=== PATIENT | female | born 1955 | race African-American/Black ===

== ENCOUNTER 2017-04-26 15:12 | Inpatient (IN) | payer OTHER ==
[~2017-04-26] VITALS: Ht 160 cm; Wt 73.1 kg
--- NOTE | ~2017-04-26 | HC ---
[facility] [place] [address] CONSULTATION Name: EDWIN WHITLEY Room #: 509-P ADM IN M.R.#: [id number] Admission: 04/26/17 Attend Phys: Mat Richardson MD Discharge: Date of : 59 Report #: [id number] THIS REPORT FOR: //name// CC: Mat Richardson FAM physician/PCP DATE OF SERVICE: 04/28/2017 This is a neurobehavioral status exam. ATTENDING PHYSICIAN: Mat Richardson MD SUPERVISOR COLOR PASTE MIXING: Austin Collins, PhD CLINICAL PRESENTATION: The patient is a 61-year-old female admitted to the [facility] rehabilitation unit for a comprehensive inpatient rehabilitation program to improve functional mobility, activities of daily living and self-care and mental status secondary to a cerebrovascular accident. She was initially brought to the hospital for a questionable treatment of a vasovagal response. Neurology workup revealed a right cerebral deep white matter infarction. She was noted to have a left-sided weakness in her face and arms. PAST MEDICAL HISTORY: Includes hypertension, rectal bleeding 2016 secondary to diverticulitis, and a head injury in June 2015. She is reported to have had a good recovery from previous conditions and was driving preceding this most recent hospitalization. A complete description of her medical condition and history can be found in her medical record. Neuropsychological consultation was requested to provide assistance in the assessment of cognitive and emotional status and to provide recommendations and services. Prior to this most recent medical event, she was living independently. Her son lives with her. 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 She has 4 children, 4 brothers and 1 sister. There is no reported history of treatment for mental disorder, dementia, alcohol, or other substance use. TECHNIQUES UTILIZED: Clinical interview, review of medical records, staff consultation and behavioral observation, mini mental status exam 2 standard version. EXAMINATION FINDINGS: The patient was alert and cooperative with the assessment. She accurately described the reason for her hospitalization. There is no evidence of aphasia. Her thoughts are logical and goal oriented. There is no report of auditory or visual hallucinations. She does not report suicidal or homicidal thinking. [facility] [address] [place] [address] CONSULTATION Name: EDWIN WHITLEY Room #: 509-P [facility] IN M.R.#: [id number] Admission: 04/26/17 Attend Phys: Mat Richardson MD Discharge: Date of : 59 Report #: [id number] She does not report difficulty with sleep, appetite or memory. She also indicates that attention/concentration, anxiety and depression are all within normal limits. Her performance on the MMSE 2 brief version is within normal limits with a raw score of 14-16 that is a T score of 41. She was 3/3 for initial registration, 5/5 for orientation to time and 5/[address]. Performance decreased to have mild range of impairment on the MMSE 2 standard version with a raw score 23-30. She was 1/5 for serial sevens, 2/2 for naming, 1/1 for repetition. She could read and follow a single command. The patient had difficulty with copying. Difficulty withdrawing secondary to the left hemiparesis and that the patient is left handed. Letter fluency is within normal limits with a raw score of 34 and a T score of 58. Category fluency is a raw score of 35 and a T score of 37 suggesting mild deficits. Overall, total fluency was in the average range with a T score of 50. 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 RECOMMENDATIONS: Continued cognitive rehabilitation with assistance and development of compensatory strategies for areas of decreased cognition. Outpatient neuropsychological testing is indicated to assist in the clarification of cognitive deficits. Educational information for her son to assist in providing environemtal support as needed. Thank you very much for allowing me to provide the consultation on this patient. <ELECTRONICALLY SIGNED> By: Austin Collins, PhD 05/04/17 1349 1416 2250 Austin Collins, PhD /nt
--- NOTE | ~2017-04-26 | P ---
[facility] [place] [address] PROCEDURE REPORT Name: GUTIERREZEDWIN ANN Room #: 509-P ADM IN M.R.#: [id number] Admission: 04/26/17 Attend Phys: Charity Richardson MD Discharge: Date of : 59 Report #: [id number] THIS REPORT FOR: //name// CC: CHARITY Richardson [facility] physician/PCP Inpatient Chart DATE OF SERVICE: 05/02/2017 PROCEDURE: Diagnostic EGD. The patient of Dr. Charity Richardson. CHIEF COMPLAINT: This is a very pleasant 61-year-old white female with a chief complaint of dark stools, heme-positive stools and anemia, etiology uncertain. She has had a colonoscopy that did not explain the source of her anemia. So EGD is performed today to evaluate for possible proximal source of blood loss. Informed consent for this procedure was obtained prior to the administration of any medication. The risks of the procedure which include bleeding, perforation, infection, complications of sedation and the possibility I could miss something have been explained to the patient and she is indicated her consent by signing. Propofol was slowly titrated before and during this procedure for patient comfort by the anesthesia service. The Pedius upper videoscope was introduced through the upper esophageal sphincter and advanced under direct visualization to the descending duodenum. Findings are noted on withdrawal of the scope. The duodenal mucosa appears normal throughout its entirety. Pylorus, normal mucosa. Antrum, normal mucosa. Body, normal mucosa. Cardia and fundus, normal mucosa. Retroflex view did not reveal any abnormalities. The scope was withdrawn to the esophagus. The Z-line is appropriately located at the top of the gastric folds and appears normal. The esophageal mucosa appears normal throughout its entirety. The scope was withdrawn. The patient went to the recovery area in stable condition. She tolerated the procedure well. IMPRESSION: Normal EGD to descending duodenum. No source of melena was seen. My recommendations are for her to have an M2 video capsule done as the next test. This may need to be done as an outpatient. [address] [address] PROCEDURE REPORT Name: EDWIN WHITLEY Room #: 509-P [facility] IN .R.#: [id number] Admission: 04/26/17 Attend Phys: Charity Richardson MD Discharge: Date of : 59 Report #: [id number] Thank you very much once again for allowing me to participate in her care, Dr. Richardson. <ELECTRONICALLY SIGNED> By: Rola Ventura DO 05/03/17 0701 1635 0248 Rola Ventura DO /nt
--- NOTE | ~2017-04-26 | H ---
[facility] [place] [address] HISTORY AND PHYSICAL Name: EDWIN WHITLEY Room #: 509-P ADM IN M.R.#: [id number] Admission: 04/26/17 Attend Phys: Mat Richardson MD Discharge: Date of : 59 Report #: [id number] THIS REPORT FOR: //name// CC: Mat Richardson [facility] physician/PCP DATE OF SERVICE: 04/26/2017 HISTORY AND PHYSICAL AND POSTADMISSION PHYSICIAN EVALUATION HISTORY OF PRESENT ILLNESS: The patient is a 61-year-old female left-handed who was originally admitted to [facility] with hematochezia. She had a questionable vasovagal spell. She was seen by Neurology and workup included an MRI which did reveal a right cerebral deep white matter infarct. She was noted to have left-sided weakness, face and arm, more than leg. No aspirin was recommended per Neurology with her bleeding history. She did undergo colonoscopy, which showed a self-resolved diverticular bleed. She was noted to have significant functional mobility, ADLs along with cognitive visual spatial and swallowing issues and has been admitted for acute in-hospital inpatient rehabilitation. PAST MEDICAL HISTORY: Includes hypertension. She had a rectal bleed in 2016 secondary to diverticulitis. She did have a head injury back in 06/2015, but was noted to have a good recovery and had gotten back to work and was driving. MEDICATIONS: Please see the full medication listing. PAST MEDICAL HISTORY: Hypertension, borderline diabetes mellitus, and cholecystectomy. PAST SURGICAL HISTORY: As noted above. HABITS: No history of tobacco abuse. Apparently, she has had some alcohol in the past. FAMILY HISTORY: Not pertinent. SOCIAL HISTORY: Lives in a house with her son, one storied. No assistive device. 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 Her son is noted to work as well. REVIEW OF SYSTEMS: Did not offer any complaints of chest pain, shortness of breath, or abdominal discomfort. PHYSICAL EXAMINATION: GENERAL: A 61-year-old female, left-handed, no obvious distress. She was seen [address] [address] HISTORY AND PHYSICAL Name: EDWIN WHITLEY Room #: 509-P [facility] IN ..#: [id number] Admission: 04/26/17 Attend Phys: Mat Richardson MD Discharge: Date of : 59 Report #: [id number] earlier. VITAL SIGNS: Her last recorded temperature was 36.9, pulse 92, respirations 14, blood pressure 148/80. She was groggy, but did respond, when seen earlier. NEUROLOGIC: Facies did reveal a depressed left nasolabial fold with a mild left facial droop. EOMs appeared to be intact. She appears to have some decreased left visual nicolas attention. CHEST: Sounded clear to auscultation. CARDIAC: Regular rate and rhythm. ABDOMEN: Bowel sounds positive, nontender. GENITOURINARY AND RECTAL: Deferred. EXTREMITIES: She has functional range of motion with strength of the right upper extremity and right lower extremity without focal weakness. DTRs are 1. Left upper extremity, she has clumsiness. Strength is a grade 3 to 3+ with definite decreased custom protection officer, decreased coordination, and decreased dexterity. She has decreased tone of that left upper extremity. Left lower extremity appeared better, probably a grade 4-/5. She has a positive Soares's in left upper extremity. No clonus in left ankle. She has been eating min assist with upper and lower extremity dressing per occupational therapy. Transfers are standby assistance. ASSESSMENT: A 61-year-old left-handed female with the following problem list: 1. Right cerebral deep white matter cerebrovascular accident. 2. Left-sided hemiparesis, face and arm, greater than leg. 3. Functional mobility and activities of daily living deficits. She also has the facial weakness with evaluation further underway regarding dysarthria, swallowing, and communication deficits. 4. Self-resolved diverticular bleed per colonoscopy. 5. Prior history of a closed head injury on 07/02/2015 with good resolution. 6. Hypertension. 7. Borderline diabetes mellitus. PLAN: The patient is admitted for acute in-hospital inpatient rehabilitation. From a postadmission physician evaluation perspective, there are no relevant changes since the preadmission screening. Please see the above review of prior and current medical and functional conditions and comorbidities. Please see the patient's previous and current functional status. As far as risk of complications, the patient has multiple medical comorbidities as noted above. Initial plan of care involves the interdisciplinary acute inpatient rehabilitation program. Measurable functional goals would be for her to become modified independent with mobility and with ADLs as well as communication and swallowing issues. To at least be independent at the walker level. Goal is to improve her left upper extremity and left-sided strength and coordination. Prognosis is reasonably good. Estimated length of stay at least 7-10 days, [facility] [address] [place] [address] HISTORY AND PHYSICAL Name: EDWIN WHITLEY Room #: 509-P ADM IN Maikel.#: [id number] Admission: 04/26/17 Attend Phys: Mat Richardson MD Discharge: Date of : 59 Report #: [id number] pending progress. Potential barriers would include her multiple medical comorbidities and decreased functional status. <ELECTRONICALLY SIGNED> By: Mat Richardson MD 04/29/17 1219 0923 1027 Mat Richardson MD /[facility]
--- NOTE | ~2017-04-26 | PLAN ---
[facility] [place] [address] REHAB UNIT PLAN OF CARE Name: VALERIANO WHITLEYLibby HAAS Room #: 509-P ADM IN M.R.#: [id number] Admission: 04/26/17 Attend Phys: Mat Richardson MD Discharge: Date of : 59 Report #: [id number] THIS REPORT FOR: //name// CC: Mat Richardson [facility] physician/PCP DATE OF SERVICE: 04/29/2017 SUBJECTIVE: The patient is seen back today in followup. She is in no distress. Last recorded temperature is 36.9, pulse 94, respirations 20, blood pressure 137/68. The patient is alert, pleasant. She has the left-sided weakness as before. No neuro changes are noted on exam. No focal calf swelling. Transfers are min assist. Gait is min assist 250 feet without a device. In occupational therapy, lower body dressing is min assist, upper body dressing is min assist. In speech therapy, she has functional comprehension. She is on a regular diet with all liquids. Speech therapy has been involved. She does have the left facial droop and some mild slurred speech. She has been started on vital stimulation. ASSESSMENT: 1. Right cerebral deep white matter cerebrovascular accident. 2. Left-sided hemiparesis, face and arm greater than leg. 3. Functional mobility and activities of daily living deficits. 4. Dysarthria with some dysphagia, although she is now on thin liquids. 5. Self-resolved diverticular bleed per colonoscopy. 6. Prior history of a closed head injury on 07/02/2015 with good resolution. 7. Hypertension. 8. Borderline diabetes mellitus. PLAN: The overall plan of care is based on the preadmission screen, post-admission physician evaluation and information garnered from therapy assessments. 1. Estimated length of stay is probably at least 7-10 days and potentially longer. 2. Medical prognosis is reasonably good. 3. Anticipated interventions includes the interdisciplinary acute inpatient rehabilitation program. 4. Anticipated functional outcomes would be for the patient to improve as far as transfers, mobility and ADLs and facial droop, dysarthria, so that she can return back to the home setting. 5. Discharge disposition would be back to the home setting where she lives with her son. 6. Expected therapy by discipline includes PT and OT and speech 1 [place] [address] REHAB UNIT PLAN OF CARE Name: EDWIN WHITLEY Room #: 509-P [facility] IN [facility].#: [id number] Admission: 04/26/17 Attend Phys: Mat Richardson MD Discharge: Date of : 59 Report #: [id number] each five days a week throughout the duration of the acute inpatient rehabilitation stay. <ELECTRONICALLY SIGNED> By: Mat Richardson MD 04/29/17 1219 0815 0846 Mat Richardson MD /PMT
[~2017-04-26 15:12] MED LIST: ALTACE5 MG PO; CIPRO500 MG PO; FLAGYL500 MG PO; IBUPROFEN 200200 M1 PO; LISINOPRIL10 MG PO; LISINOPRIL20 MG PO; POLYSACCHARIDE150 M2 PO; PROTONIX40 M1 PO; TYLENOL325 MG PO
[2017-04-26] MEDS ORDERED: PROTONIX40 M1 PO (17:25)
[2017-04-26] MEDS ORDERED: LIPITOR 20 MG T20 M1 PO (17:25)
[2017-04-26 18:48] VITALS: BP 148/80
[2017-04-27 03:51] LABS: HEMATOCRIT 22.9 % (37.0-47.0); HEMOGLOBIN 7.4 gm/dL (12.0-15.0); MCH 25.7 pg (26.0-34.0); MCHC 32.6 g/dL (28.0-37.0); MCV 78.9 fL (80.0-100.0); RBC 2.9 mil/uL (4.20-5.00); RDW 25.2 % (10.5-14.5); WBC 7.3 thou/uL (4.0-11.0)
[2017-04-27 04:01] LABS: CALCIUM 8.6 mg/dL (8.5-10.1); CREATININE 0.6 mg/dL (0.6-1.0); POTASSIUM 3.1 mmol/L (3.5-5.1)
[2017-04-27 08:25] VITALS: BP 147/80
[2017-04-27 20:10] VITALS: BP 157/75
[2017-04-28 08:58] VITALS: BP 165/97
[2017-04-28 20:02] VITALS: BP 137/68
[2017-04-29 08:30] VITALS: BP 152/88
[2017-04-29 19:50] VITALS: BP 118/74
[2017-04-30 03:51] LABS: ABSOLUTE NEUTROPHILS 5.1 thou/uL (1.4-8.2); BASOPHILS 0.8 % (0.0-2.0); EOSINOPHILS 3.1 % (0.0-3.0); LYMPHOCYTES 23.2 % (24.0-44.0); MCH 26.8 pg (26.0-34.0); MCHC 32.7 g/dL (28.0-37.0); MCV 81.9 fL (80.0-100.0); MONOCYTES 6.7 % (1.0-8.0); PLATELET COUNT 448 thou/uL (150-400); POLYS 66.2 % (36.0-66.0); RBC 2.39 mil/uL (4.20-5.00); RDW 26.7 % (10.5-14.5); WBC 7.6 thou/uL (4.0-11.0)
[2017-04-30 03:54] LABS: HEMATOCRIT 19.6 % (37.0-47.0); HEMOGLOBIN 6.4 gm/dL (12.0-15.0)
[2017-04-30 03:55] LABS: CALCIUM 8.7 mg/dL (8.5-10.1); CREATININE 0.7 mg/dL (0.6-1.0); POTASSIUM 4.4 mmol/L (3.5-5.1)
[2017-04-30 04:45] LABS: ANISOCYTOSIS 3+; POLYCHROMASIA 2+
[2017-04-30 08:22] VITALS: BP 131/81
[2017-04-30 10:08] LABS: HEMATOCRIT 20.5 % (37.0-47.0); HEMOGLOBIN 6.6 gm/dL (12.0-15.0)
[2017-04-30 15:02] VITALS: BP 143/79
[2017-04-30 19:36] VITALS: BP 164/99
[2017-04-30 20:19] LABS: HEMATOCRIT 23.9 % (37.0-47.0); HEMOGLOBIN 7.9 gm/dL (12.0-15.0)
[2017-05-01 04:07] LABS: ABSOLUTE NEUTROPHILS 5.9 thou/uL (1.4-8.2); BASOPHILS 0.8 % (0.0-2.0); EOSINOPHILS 2.3 % (0.0-3.0); HEMATOCRIT 24.3 % (37.0-47.0); HEMOGLOBIN 8.2 gm/dL (12.0-15.0); LYMPHOCYTES 17.8 % (24.0-44.0); MCHC 33.5 g/dL (28.0-37.0); MCV 83.5 fL (80.0-100.0); PLATELET COUNT 435 thou/uL (150-400); POLYS 71.1 % (36.0-66.0); RBC 2.92 mil/uL (4.20-5.00); RDW 25.1 % (10.5-14.5); WBC 8.3 thou/uL (4.0-11.0)
[2017-05-01 04:16] LABS: ALBUMIN 2.9 g/dL (3.4-5.0); CALCIUM 8.7 mg/dL (8.5-10.1); CREATININE 0.7 mg/dL (0.6-1.0); MAGNESIUM 2.1 mg/dL (1.8-2.4); POTASSIUM 3.9 mmol/L (3.5-5.1); TOTAL BILIRUBIN 0.1 mg/dL (<0.1-1.0); TOTAL PROTEIN 6.1 g/dL (6.4-8.2)
[2017-05-01 05:18] LABS: ANISOCYTOSIS 3+; POLYCHROMASIA 2+
[2017-05-01 08:57] VITALS: BP 146/83
[2017-05-01 20:01] VITALS: BP 134/75
[2017-05-02 07:13] VITALS: BP 145/77
[2017-05-02 08:43] LABS: HEMOGLOBIN 7.7 gm/dL (12.0-15.0)
[2017-05-02 08:49] LABS: HEMATOCRIT 23.1 % (37.0-47.0); MCH 28.1 pg (26.0-34.0); MCHC 33.5 g/dL (28.0-37.0); PLATELET COUNT 444 thou/uL (150-400); RBC 2.75 mil/uL (4.20-5.00); RDW 24.5 % (10.5-14.5)
[2017-05-02 08:51] LABS: CALCIUM 9.1 mg/dL (8.5-10.1); CREATININE 0.6 mg/dL (0.6-1.0); POTASSIUM 3.9 mmol/L (3.5-5.1)
[2017-05-02 09:21] LABS: ANISOCYTOSIS 2+; MICROCYTES 2+; NUCLEATED RBCS 1 /100WBC; PLATELET ESTIMATE INCREASED; POLYCHROMASIA 1+
[2017-05-02 17:19] VITALS: BP 164/98
[2017-05-02 20:25] VITALS: BP 134/81
[2017-05-03 05:40] LABS: HEMATOCRIT 22.3 % (37.0-47.0); HEMOGLOBIN 7.3 gm/dL (12.0-15.0); MCH 27.9 pg (26.0-34.0); MCHC 32.5 g/dL (28.0-37.0); MCV 85.6 fL (80.0-100.0); RBC 2.61 mil/uL (4.20-5.00); RDW 24.1 % (10.5-14.5); WBC 6.8 thou/uL (4.0-11.0)
[2017-05-03 07:45] VITALS: BP 142/86
[2017-05-03 19:57] VITALS: BP 140/75
[2017-05-04 03:37] LABS: HEMATOCRIT 22.7 % (37.0-47.0); HEMOGLOBIN 7.3 gm/dL (12.0-15.0); MCH 27.8 pg (26.0-34.0); MCHC 32.4 g/dL (28.0-37.0); MCV 85.9 fL (80.0-100.0); RBC 2.64 mil/uL (4.20-5.00); RDW 24.1 % (10.5-14.5); WBC 6.8 thou/uL (4.0-11.0)
[2017-05-04 07:19] VITALS: BP 146/91
[2017-05-04 20:02] VITALS: BP 155/84
[2017-05-05 07:52] VITALS: BP 174/84
[2017-05-05 08:00] VITALS: BP 172/88
[2017-05-05 19:38] VITALS: BP 152/89
[2017-05-06 04:22] LABS: HEMATOCRIT 23.6 % (37.0-47.0); HEMOGLOBIN 7.8 gm/dL (12.0-15.0); MCH 28.3 pg (26.0-34.0); MCHC 32.8 g/dL (28.0-37.0); MCV 86.2 fL (80.0-100.0); RBC 2.74 mil/uL (4.20-5.00); RDW 22.9 % (10.5-14.5); WBC 8.2 thou/uL (4.0-11.0)
[2017-05-06 07:40] VITALS: BP 136/86
[2017-05-06 19:30] VITALS: BP 166/89; BP 193/112
[2017-05-06 20:15] VITALS: BP 148/73
[2017-05-07 08:30] VITALS: BP 176/101
[2017-05-07 10:00] VITALS: BP 158/88
[2017-05-07 15:11] VITALS: BP 146/88
[2017-05-07 19:22] VITALS: BP 171/85
[2017-05-08 06:06] LABS: HEMATOCRIT 24.9 % (37.0-47.0); HEMOGLOBIN 8.2 gm/dL (12.0-15.0); MCH 27.9 pg (26.0-34.0); MCHC 32.8 g/dL (28.0-37.0); MCV 84.9 fL (80.0-100.0); RBC 2.94 mil/uL (4.20-5.00); RDW 21.4 % (10.5-14.5); WBC 5.4 thou/uL (4.0-11.0)
[2017-05-08 08:00] VITALS: BP 157/102
[2017-05-08 19:58] VITALS: BP 149/81
[2017-05-09 08:24] VITALS: BP 115/60
[2017-05-09 11:37] VITALS: BP 115/60
[2017-05-09 12:51] VITALS: BP 115/60
[2017-05-09 15:51] VITALS: BP 115/60
[2017-05-09 15:53] VITALS: BP 115/60
[2017-05-10] MEDS ORDERED: VITAMIN B-12500 MCG PO (09:11)
[2017-05-10] MEDS ORDERED: VITAMIN D2000 UNIT PO (09:11)
[2017-05-10 10:42] VITALS: BP 120/71
[2017-05-10 11:04] VITALS: BP 115/60
== END 2017-05-10 12:46 | disposition home health service (06) | DRG 65 ==
LOC: ENTRNSPT 05-10 12:37 → EDTRNSPTSTS 05-10 12:39
PROVIDERS: Hospitalist; Internal Medicine Endocrinology, Diabetes & Metabolism; Nurse Practitioner; Nurse Practitioner Acute Care; Nurse Practitioner Family; Physical Medicine & Rehabilitation; Psychiatry & Neurology Neuromuscular Medicine; Specialist
PROC: 30233N1 Transfusion of Nonautologous Red Blood Cells into Peripheral Vein, Percutaneous Approach (ICD-10-PCS; 2017-04-30)
PROC: 0DJ08ZZ Inspection of Upper Intestinal Tract, Via Natural or Artificial Opening Endoscopic (ICD-10-PCS; principal; 2017-05-02)
DX: I63.9 Cerebral infarction, unspecified (principal); G81.94 Hemiplegia, unspecified affecting left nondominant side; E44.0 Moderate protein-calorie malnutrition; K92.2 Gastrointestinal hemorrhage, unspecified; I10 Essential (primary) hypertension; G31.84 Mild cognitive impairment of uncertain or unknown etiology; R47.1 Dysarthria and anarthria; E53.8 Deficiency of other specified B group vitamins; R13.10 Dysphagia, unspecified; D50.9 Iron deficiency anemia, unspecified; E87.6 Hypokalemia; Z68.28 Body mass index [BMI] 28.0-28.9, adult; Z90.49 Acquired absence of other specified parts of digestive tract; Z87.828 Personal history of other (healed) physical injury and trauma
CPT/HCPCS: 10112; 62110; 62900; 70005

== ENCOUNTER 2017-06-20 02:15 | Inpatient (IN) | payer OTHER ==
[~2017-06-20] VITALS: Ht 160 cm; Wt 73.9 kg
[2017-06-20] VITALS (11 sets, daily range): BP systolic 139–169; BP diastolic 79–101
[~2017-06-20 02:15] MED LIST changes: +LIPITOR 20 MG T20 M1 PO; +VITAMIN B-12500 MCG PO; +VITAMIN D2000 UNIT PO
[2017-06-20 02:55] LABS: HEMOGLOBIN 6.5 gm/dL (12.0-15.0); WBC 11.3 thou/uL (4.0-11.0)
[2017-06-20 02:56] LABS: HEMATOCRIT 20.7 % (37.0-47.0); MCH 24.4 pg (26.0-34.0); MCHC 31.3 g/dL (28.0-37.0); RBC 2.66 mil/uL (4.20-5.00); RDW 18.1 % (10.5-14.5)
[2017-06-20 03:04] LABS: ANION GAP 7 mmol/L (7-16); BUN 13 mg/dL (7-18); CALCIUM 8.9 mg/dL (8.5-10.1); CHLORIDE 107 mmol/L (98-107); CO2 28 mmol/L (21-32); CREATININE 0.7 mg/dL (0.6-1.0); GLUCOSE 160 mg/dL (74-106); POTASSIUM 3.7 mmol/L (3.5-5.1); SODIUM 142 mmol/L (136-145)
[2017-06-20 03:07] LABS: APTT 24.7 Seconds (24.5-32.8); PROTIME 10.1 Seconds (9.3-11.4)
[2017-06-20 03:31] LABS: SGOT 11 U/L (15-37); SGPT 19 U/L (30-65); TOTAL BILIRUBIN < 1.0 mg/dL (<0.1-1.0); TOTAL PROTEIN 6.4 g/dL (6.4-8.2)
[2017-06-20 08:27] LABS: HEMATOCRIT 22.2 % (37.0-47.0); HEMOGLOBIN 7.1 gm/dL (12.0-15.0)
[2017-06-20 14:06] LABS: HEMATOCRIT 23.3 % (37.0-47.0); HEMOGLOBIN 7.2 gm/dL (12.0-15.0)
[2017-06-20 18:25] LABS: HEMATOCRIT 24.7 % (37.0-47.0); HEMOGLOBIN 8.5 gm/dL (12.0-15.0)
[2017-06-20 20:51] LABS: HEMATOCRIT 24.6 % (37.0-47.0); HEMOGLOBIN 8.2 gm/dL (12.0-15.0)
[2017-06-21 02:14] LABS: HEMATOCRIT 24.2 % (37.0-47.0); HEMOGLOBIN 8.2 gm/dL (12.0-15.0)
[2017-06-21 04:00] VITALS: BP 148/75
[2017-06-21 06:40] LABS: HEMATOCRIT 22.8 % (37.0-47.0); HEMOGLOBIN 7.5 gm/dL (12.0-15.0)
[2017-06-21 08:30] VITALS: BP 158/91
[2017-06-21 12:00] VITALS: BP 142/83
[2017-06-21 15:17] LABS: ABSOLUTE NEUTROPHILS 7.7 thou/uL (1.4-8.2); BASOPHILS 0.5 % (0.0-2.0); EOSINOPHILS 1.4 % (0.0-3.0); HEMOGLOBIN 7.8 gm/dL (12.0-15.0); LYMPHOCYTES 16.9 % (24.0-44.0); MCH 27.5 pg (26.0-34.0); MCHC 33.9 g/dL (28.0-37.0); MCV 81.1 fL (80.0-100.0); POLYS 75.2 % (36.0-66.0); RBC 2.84 mil/uL (4.20-5.00); RDW 17.7 % (10.5-14.5); WBC 10.2 thou/uL (4.0-11.0)
[2017-06-21 15:19] LABS: PLATELET COUNT 441 thou/uL (150-400)
[2017-06-21 16:32] VITALS: BP 148/79
[2017-06-21 18:55] VITALS: BP 160/90
[2017-06-22 03:00] VITALS: BP 168/91
[2017-06-22 05:30] LABS: HEMATOCRIT 23.5 % (37.0-47.0); HEMOGLOBIN 7.9 gm/dL (12.0-15.0); MCH 27.4 pg (26.0-34.0); MCHC 33.7 g/dL (28.0-37.0); MCV 81.2 fL (80.0-100.0); RBC 2.9 mil/uL (4.20-5.00); RDW 17.7 % (10.5-14.5); WBC 9.8 thou/uL (4.0-11.0)
[2017-06-22 07:36] VITALS: BP 140/72
[2017-06-22] MEDS ORDERED: FLAGYL500 MG PO (08:37)
[2017-06-22] MEDS ORDERED: CIPRO500 MG PO (08:37)
[2017-06-22 12:08] VITALS: BP 140/72
== END 2017-06-22 14:30 | disposition home health service (06) | DRG 378 ==
LOC: ER 02:15 → 3W 03:25 → EROBS 03:25 → 3W 03:51
PROVIDERS: Emergency Medicine; Family Medicine; Internal Medicine Gastroenterology; Nurse Practitioner; Nurse Practitioner Acute Care
PROC: 30233N1 Transfusion of Nonautologous Red Blood Cells into Peripheral Vein, Percutaneous Approach (ICD-10-PCS; principal; 2017-06-20)
DX: K57.31 Diverticulosis of large intestine without perforation or abscess with bleeding (principal); D62 Acute posthemorrhagic anemia; K92.2 Gastrointestinal hemorrhage, unspecified; I10 Essential (primary) hypertension; E11.9 Type 2 diabetes mellitus without complications; E78.5 Hyperlipidemia, unspecified; F17.210 Nicotine dependence, cigarettes, uncomplicated; D50.0 Iron deficiency anemia secondary to blood loss (chronic); R55 Syncope and collapse; Z90.49 Acquired absence of other specified parts of digestive tract; Z86.73 Personal history of transient ischemic attack (TIA), and cerebral infarction without residual deficits; Z79.899 Other long term (current) drug therapy; Z23 Encounter for immunization
CPT/HCPCS: 10879

== ENCOUNTER 2018-06-07 09:46 | Inpatient (IN) | payer OTHER ==
[~2018-06-07] VITALS: Ht 160 cm; Wt 79.8 kg
[2018-06-07 09:48] VITALS: BP 212/127
[2018-06-07 10:23] LABS: ABSOLUTE NEUTROPHILS 4.5 thou/uL (1.4-8.2); BASOPHILS 1.2 % (0.0-2.0); HEMOGLOBIN 13.6 gm/dL (12.0-15.0); LYMPHOCYTES 28.9 % (24.0-44.0); MCH 25.9 pg (26.0-34.0); MCV 78.5 fL (80.0-100.0); MONOCYTES 6.4 % (1.0-8.0); PLATELET COUNT 376 thou/uL (150-400); POLYS 59.5 % (36.0-66.0); RBC 5.23 mil/uL (4.20-5.00); RDW 15.3 % (10.5-14.5); WBC 7.5 thou/uL (4.0-11.0)
[2018-06-07 10:31] LABS: CALCIUM 9.2 mg/dL (8.5-10.1); CREATININE 0.9 mg/dL (0.6-1.0); POTASSIUM 4.2 mmol/L (3.5-5.1)
[2018-06-07 10:37] LABS: ALBUMIN 3.9 g/dL (3.4-5.0); TOTAL BILIRUBIN 0.2 mg/dL (<0.1-1.0)
[2018-06-07 10:55] VITALS: BP 165/86
--- NOTE | 2018-06-07 13:42 | NUR ---
PT TO NUCLEAR MED PER CART THEN TO GO TO ROOM 427 AFTER PROCEDURE
--- NOTE | 2018-06-07 13:53 | NUR ---
SBAR FAXED TO THE FLOOR AT 1350. PT TO [facility] FOR RBC SCAN. REPORT TO SOFIA VALENTINE ON THE FLOOR. AWARE OF PT AND ARRIVAL TIME POST SCAN APPROX 60-90 MIN.
[2018-06-07 13:56] VITALS: BP 154/85
[2018-06-07 15:50] VITALS: BP 117/97
--- NOTE | 2018-06-07 16:08 | NUR ---
62 YO FEMALE ADMITTED TO 421 BY CART FROM NUCLEAR MED. A&OX4, AMBULATES W/O ASSIST. IV INTACT INFUSING NS@100 IN R HAND. DENIES ANY PAIN AT THIS TIME. ORIENTED PT TO ROOM/ CALL LIGHT. PT TOLERATING FULL LIQUID DIET.
[2018-06-07 19:32] VITALS: BP 155/89
[2018-06-08 00:07] LABS: GLYCOHEMOGLOBIN (HGB A1C) 7.2 % (4.8-5.6)
--- NOTE | 2018-06-08 00:56 | NUR ---
Assumed care of pt at 1900. Pt a&ox4. SBA. Pt c/o of headache. Heddler on duty notified. New orders noted. Pt reports bloody stool. Per order, called radiology and a TN acute GI Blood Loss Imaging exam performed. Test came back negative for acute gastrointestinal bleed. Call light within reach. Will continue to monitor.
[2018-06-08 05:01] VITALS: BP 174/81
[2018-06-08 05:13] LABS: HEMATOCRIT 39.2 % (37.0-47.0); HEMOGLOBIN 12.2 gm/dL (12.0-15.0); MCH 25.2 pg (26.0-34.0); MCV 81.2 fL (80.0-100.0); RBC 4.83 mil/uL (4.20-5.00); RDW 15.3 % (10.5-14.5); WBC 5.8 thou/uL (4.0-11.0)
[2018-06-08 05:26] LABS: CALCIUM 8.9 mg/dL (8.5-10.1); CREATININE 0.7 mg/dL (0.6-1.0); MAGNESIUM 2.1 mg/dL (1.8-2.4); POTASSIUM 4.1 mmol/L (3.5-5.1)
--- NOTE | 2018-06-08 05:38 | NUR ---
ASSUMED CARE OF PT AT 0340.
[2018-06-08 07:25] VITALS: BP 145/71
--- NOTE | 2018-06-08 12:40 | NUR ---
PT A&OX4, IV INTACT IN R FA, AMBULATES SELF, ID REPORTS OF ANITHA BLEEDING IN STOOL LAST NOC, NONE NOTED THUS FAR TODAY, DENIES ANY PAIN. TOLERATING FULL LIQUID DIET.
[2018-06-08 19:14] VITALS: BP 168/84
--- NOTE | 2018-06-08 19:17 | NUR ---
PATIENT WAS BROUGHT DOWN FROM ROOM 421 TO RM 227 BY NURSING STAFF. REPORT GIVEN TO NIGHT NURSE.
[2018-06-09 06:29] LABS: HEMATOCRIT 36.9 % (37.0-47.0); HEMOGLOBIN 11.8 gm/dL (12.0-15.0); MCH 25.4 pg (26.0-34.0); MCV 79.5 fL (80.0-100.0); RBC 4.64 mil/uL (4.20-5.00); RDW 15.5 % (10.5-14.5); WBC 8.4 thou/uL (4.0-11.0)
[2018-06-09 06:40] LABS: CREATININE 0.8 mg/dL (0.6-1.0); MAGNESIUM 2.3 mg/dL (1.8-2.4); POTASSIUM 3.9 mmol/L (3.5-5.1)
[2018-06-09 07:31] VITALS: BP 158/95
[2018-06-09 12:42] LABS: % SATURATION 10 % (20-39); IRON 32 ug/dL (50-170); TIBC 327 ug/dL (250-450)
--- NOTE | 2018-06-09 15:47 | NUR ---
ASSUMED CARE OF PATIENT THIS MORNING. PATIENT IS A&OX4. SHE IS UP AD ED. PATIENT HAS NOT COMPLAINED OF ANY PAIN TODAY. SHE HAS NOT HAD ANY BLOOD IN HER STOOL. PATIENT WAS JUST INFORMED TODAY THAT SHE WAS DIABETIC. DR. SWAIN PLANS TO SEND THE PATIENT HOME ON METFORMIN. SHE IS CURRENTLY ON SLIDING SCALE INSULIN. COLONOSCOPY WAS NOT PREFORMED THIS MORNING AND PATIENT WILL CONTINUE TO BE MONITORED FOR ANY SIGNS AND SYMPTOMS OF BLEEDING. NO ABNORMAL FINDINGS UPON ASSESSMENT. PATIENT IS CURRENTLY SITTING IN CHAIR WITH CALL LIGHT WITHIN REACH.
--- NOTE | 2018-06-09 15:53 | NUR ---
INITIAL ASSESSMENT: Pt evaluated for d/c planning needs. Reviewed chart and spoke with nurse and pt. Pt is alert and oriented. Pt has been hospitalized at [facility] in the past, but said she has not completed Medicaid application. Pt said Jenny with [employer] met with her today. Encouraged pt to complete Medicaid application and provide information needed by DFS. Pt goes to [facility] on [address] for her medical needs. Pt had [facility] richard visits after previous hospitalization. Pt lives with children and plans on returning home on d/c from hospital. Asked to have information provided for assistance with medication. Pt said pt will be discharged home on oral diabetic medication. Will remain available to assist as needed.
[2018-06-09 19:42] VITALS: BP 185/106
--- NOTE | 2018-06-10 05:24 | NUR ---
PATIENT ALERT AND ORIENTED X4. UP IN ROOM BY SELF. IV IN RFA. ACCUCHECK WAS 143, NO INSULIN REQUIRED. STATES HAS NO SIGN OF BLEEDING THIS SHIFT. BP WAS UP AT 185/106. SUBSTATION SUPERVISOR WAS CALLED AND AN ORDER WAS OBTAINED FOR SOME PRN MED FOR HIGH BP.AND GIVEN. DENIES PAIN. SLEPT MOST OF NIGHT.
[2018-06-10 07:00] LABS: HEMOGLOBIN 11.9 gm/dL (12.0-15.0); MCH 25.6 pg (26.0-34.0); MCHC 32.2 g/dL (28.0-37.0); MCV 79.4 fL (80.0-100.0); RBC 4.67 mil/uL (4.20-5.00); RDW 15.2 % (10.5-14.5); WBC 6.8 thou/uL (4.0-11.0)
[2018-06-10 07:09] LABS: CALCIUM 9.1 mg/dL (8.5-10.1); CREATININE 0.8 mg/dL (0.6-1.0); MAGNESIUM 2.1 mg/dL (1.8-2.4); POTASSIUM 3.8 mmol/L (3.5-5.1)
[2018-06-10 08:15] VITALS: BP 170/92
[2018-06-10 09:15] VITALS: BP 154/92
[2018-06-10] MEDS ORDERED: METFORMIN HCL500 MG PO (14:22)
[2018-06-10] MEDS ORDERED: TYLENOL325 MG PO (14:22)
[2018-06-10] MEDS ORDERED: LISINOPRIL20 MG PO (14:25)
--- NOTE | 2018-06-10 16:34 | NUR ---
ASSUMED CARE AT SHIFT CHANGE. PT A/O X 4. C/O DIZZINESS THIS WITH SOB AFTER GETTING HYDRALAZINE. CXR NEG. PT DENIES ANY BLOODY STOOL THIS AM HOWEVER WHEN SPEAKING WITH DR BARNARD, PT STATES SHE HAD DARK RED STOOL THIS AM. RECTAL EXAM PER DR BARNARD SHOWING SOME DARK RED BLOOD IN STOOL. GI SPOKE WITH HOSPITALISTS AND PLAN IS FOR PT TO STAY AND HAVE EGD/FLEX SIG EXAM COMPLETED TOMORROW, 06/11. PT UPDATED ON POC. ASSESSMENTS PER CHART, LABS NOTED. WILL CONT TO MONITOR AND FOLLOW POC.
--- NOTE | 2018-06-10 16:54 | NUR ---
SW reviewed chart and spoke with nursing and attending physician. Pt is not ready for discharge home today per GI. Pt may need a flex sig or colonoscopy. SW is following to assist as needed with discharge planning.
[2018-06-10 19:56] VITALS: BP 153/90
--- NOTE | 2018-06-11 02:10 | NUR ---
PT NPO FOR EGD AND FLEX SIG TODAY, PT NEEDS TAP WATER ENEMA AROUND 0900 PER ORDER, PT IS UP ADLIB, DENIES PAIN, ALERT/ORIENTED X4, CONSENT FOR EGD TO BE PERFORMED BY DR ZHOU, SIGNED AND IN THE CHART. DENIES BM TONIGHT. CONTINUE WITH HYDROCORTISONE SUPPOSITORY, USING CALL LIGHT APPROPRIATELY. BLOOD SUGAR TONIGHT WNL, NO INSULIN GIVEN, HOURLY ROUNDING, MONITORED.
[2018-06-11 06:20] LABS: HEMATOCRIT 36.8 % (37.0-47.0); HEMOGLOBIN 11.9 gm/dL (12.0-15.0); MCH 25.6 pg (26.0-34.0); MCHC 32.5 g/dL (28.0-37.0); RBC 4.65 mil/uL (4.20-5.00); RDW 15.1 % (10.5-14.5); WBC 6.8 thou/uL (4.0-11.0)
[2018-06-11 06:27] LABS: CALCIUM 9.3 mg/dL (8.5-10.1); CREATININE 0.8 mg/dL (0.6-1.0); MAGNESIUM 2.3 mg/dL (1.8-2.4); POTASSIUM 3.9 mmol/L (3.5-5.1)
[2018-06-11 08:00] VITALS: BP 155/101
--- NOTE | 2018-06-11 08:33 | NUR ---
A&0X4, UP AD ED, SEE INTERVENTION FOR ASSESSMENT, REPORTS OF 0900 WATER ENEMA, PT AWARE, AND NPO FOR PROCEDURE, ENCOURAGED HER TO USE CALL LIGHT FOR ANY NEEDS, BG TAKEN, 108
--- NOTE | 2018-06-11 09:41 | NUR ---
TAP WATER ENEMA PERFORMED AT 0915, AFTER REMOVAL OF WASTE, INSERTED SUPPOSITORY, PT TOLERATED EXCELLENTLY, NO C/O EXCESS CRAMPING, STATED SHE'S OLD HAT AT THE PROCEDURE, ALSO STATES SHE IS HUNGRY
--- NOTE | 2018-06-11 10:04 | NUR ---
SW reviewed chart and spoke with nursing. Pt is scheduled to have an EGD/Flex Sig today per GI. SW left Health Resource guide and prescription assistance cards. Plan is for pt to discharge home when medically stable. SW is following to assist as needed with discharge planning.
[2018-06-11 20:00] VITALS: BP 156/101
--- NOTE | 2018-06-12 06:02 | NUR ---
PATIENT ALERT AND ORIENTED X4.UP TO BATHROOM BY SELF. TWO EPISODES OF BLOODY STOOL OF BRIGHT RED BLOOD. C/O HEADACHE AT 1950, TYLENOL WAS GIVEN AND HEADACHE WENT AWAY. BP UP WITH SBP LOWER THAN PARAMETERS FOR HYDRALISINE. BUT DBP HIGH. PATIENT DID NOT WANT MED BECAUSE IT MAKES HER HEART RACE. RETIIK BP AT [place] AND IT WAS SOMEWHAT BETTER. SLEPT OFF AND ON DURING SHIFT.
[2018-06-12 06:40] LABS: HEMATOCRIT 36.2 % (37.0-47.0); HEMOGLOBIN 11.5 gm/dL (12.0-15.0)
[2018-06-12 08:00] VITALS: BP 143/91
--- NOTE | 2018-06-12 10:34 | NUR ---
AAOX4. CALM, COOPERATIVE. REPORT OF TWO BLOODY STOOLS OVERNIGHT REPORTED TO DR. PAGAN. DR. ANTOINE CONSULTED BY HER. PLAN IS POSSIBLE LAPARASCOPIC PARTIAL BOWEL RESECTION. WILL CONTINUE TO FOLLOW.
--- NOTE | 2018-06-12 10:34 | NUR ---
SW reviewed chart and spoke with nursing. Pt is s/p flex sig. Surgery consulted today for laprascopic partial colectomy. SW is following to assist as needed with discharge planning.
[2018-06-12 14:30] LABS: HEMATOCRIT 35.6 % (37.0-47.0); HEMOGLOBIN 11.7 gm/dL (12.0-15.0)
[2018-06-12 19:28] VITALS: BP 157/90
--- NOTE | 2018-06-13 04:02 | NUR ---
PATIENT ALERT AND ORIENTED X4. UP IN HALLS. ACCUCHECK WAS 163, RECIEVED 3 UNITS LISPRO INSULIN. NO BLEEDING NOTED THIS SHIFT. AWAKE THE FIRST PART OF THE NIGHT BUT SLEPT THE LAST PART. DENIES PAIN.
[2018-06-13 04:17] LABS: HEMATOCRIT 35.3 % (37.0-47.0); HEMOGLOBIN 11.2 gm/dL (12.0-15.0); MCH 25.4 pg (26.0-34.0); MCHC 31.6 g/dL (28.0-37.0); MCV 80.4 fL (80.0-100.0); RBC 4.39 mil/uL (4.20-5.00); RDW 15.3 % (10.5-14.5); WBC 6.5 thou/uL (4.0-11.0)
[2018-06-13 04:27] LABS: CALCIUM 8.9 mg/dL (8.5-10.1); CREATININE 0.7 mg/dL (0.6-1.0); POTASSIUM 3.9 mmol/L (3.5-5.1)
[2018-06-13 08:31] VITALS: BP 144/73
--- NOTE | 2018-06-13 11:46 | NUR ---
SW reviewed chart and spoke with attending physician. Pt is progressing towards goals for discharge. Pt to have bleeding scan today. If negative, pt will discharge home. SW is following to assist as needed with discharge planning.
[2018-06-13 13:25] VITALS: BP 144/73
[2018-06-13 16:33] VITALS: BP 144/73
--- NOTE | 2018-06-13 16:48 | NUR ---
ASSUMED PT CARE AT 0700H. PT IS A&O X4. PT HAS NO S/S OF DISTRESS. PT STATES NO PAIN AT THE TIME. PT CONCERN OF NEW DX OF DM. PT EDUCATED AND DIETARY NOTIFIED FOR FURTHER EDUCATION ON DIET. PT STATES HAVING NORMAL STOOLS WITH NO BLOOD ON 06/12/18. PHYSICIANS NOTIFIED. PT CURRENTLY DC HOME. PT HAD CM HELP WITH FILLING RX. PT CURRENTLY LEFT WITH SON ON WHEELCHAIR WITH HELP OF TRANSPORT STAFF.
== END 2018-06-13 16:56 | disposition home or self-care (01) | DRG 379 ==
LOC: ER 09:46 → EROBS 10:50 → SICU 10:50 → 4E 13:42 → SICU 06-08 18:28 → ENTRNSPT 06-13 16:24 → SICU 06-13 16:56
PROVIDERS: Emergency Medicine; Hospitalist; Internal Medicine Gastroenterology; Nurse Practitioner; Surgery; ADMIT Internal Medicine
PROC: 0DJD8ZZ Inspection of Lower Intestinal Tract, Via Natural or Artificial Opening Endoscopic (ICD-10-PCS; principal; 2018-06-11)
DX: K57.31 Diverticulosis of large intestine without perforation or abscess with bleeding (principal); I10 Essential (primary) hypertension; E11.65 Type 2 diabetes mellitus with hyperglycemia; D50.9 Iron deficiency anemia, unspecified; E78.5 Hyperlipidemia, unspecified; Z86.73 Personal history of transient ischemic attack (TIA), and cerebral infarction without residual deficits; Z90.49 Acquired absence of other specified parts of digestive tract; Z79.899 Other long term (current) drug therapy; Z23 Encounter for immunization
CPT/HCPCS: 10783; 15002; 62110; 62900

== ENCOUNTER 2018-07-24 08:09 | Emergency (ER) | payer OTHER ==
[~2018-07-24] VITALS: Ht 160 cm; Wt 77.1 kg
[~2018-07-24 08:09] MED LIST changes: +METFORMIN HCL500 MG PO
[2018-07-24 08:43] LABS: ABSOLUTE NEUTROPHILS 5.2 thou/uL (1.4-8.2); BASOPHILS 0.8 % (0.0-2.0); EOSINOPHILS 2.1 % (0.0-3.0); HEMATOCRIT 31.7 % (37.0-47.0); LYMPHOCYTES 22.8 % (24.0-44.0); MCH 25.1 pg (26.0-34.0); MCHC 31.6 g/dL (28.0-37.0); MCV 79.5 fL (80.0-100.0); MONOCYTES 5.8 % (1.0-8.0); PLATELET COUNT 371 thou/uL (150-400); POLYS 68.5 % (36.0-66.0); RBC 3.98 mil/uL (4.20-5.00); RDW 15.8 % (10.5-14.5); WBC 7.5 thou/uL (4.0-11.0)
[2018-07-24 08:50] LABS: CALCIUM 8.7 mg/dL (8.5-10.1); CREATININE 0.7 mg/dL (0.6-1.0); POTASSIUM 3.8 mmol/L (3.5-5.1)
[2018-07-24 08:56] LABS: ALBUMIN 3.6 g/dL (3.4-5.0); TOTAL BILIRUBIN 0.1 mg/dL (<0.1-1.0); TOTAL PROTEIN 7.3 g/dL (6.4-8.2)
[2018-07-24 08:57] LABS: APTT 23.3 Seconds (24.5-32.8); PROTIME 9.7 Seconds (9.3-11.4)
[2018-07-24] MEDS ORDERED: ANUSOL-HC25 MG RECTAL (10:43)
[2018-07-24 10:59] VITALS: BP 138/84
== END 2018-07-24 11:00 | disposition home or self-care (01) ==
LOC: ER 08:09
PROVIDERS: Emergency Medicine
DX: K57.90 Diverticulosis of intestine, part unspecified, without perforation or abscess without bleeding (principal); I10 Essential (primary) hypertension; E78.5 Hyperlipidemia, unspecified; Z90.49 Acquired absence of other specified parts of digestive tract; R42 Dizziness and giddiness

== ENCOUNTER 2018-07-26 00:01 | Inpatient (IN) | payer OTHER ==
[2018-07-26] VITALS (56 sets, daily range): BP systolic 117–189; BP diastolic 47–119
[~2018-07-26] VITALS: Ht 160 cm; Wt 82.3 kg
--- NOTE | ~2018-07-26 | EKG ---
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1955 Requested By: Luther James Order Number: [id number] MD: Measurements Intervals [place] Rate: 89 P: 62 [place]: 147 QRS: 4 QRSD: 86 T: 206 QT: 358 QTc: 436 Interpretive Statements Sinus rhythm Abnrm T, consider ischemia, anterolateral lds Compared to ECG 04/21/2017 21:27:47 T-wave abnormality no longer present Possible ischemia still present [email or web address] ��������������������������������������������� ���������������������������������������� By: ��������������������������������������������� 0046 0046 Epiphany EpiphanyMD /EPI
[~2018-07-26 00:01] MED LIST changes: +ANUSOL-HC25 MG RECTAL
--- NOTE | 2018-07-26 00:10 | NUR ---
PT REPORTS ABOUT A CUP OF BLOOD LOSS, PT DENIES DIZZINESS. ONLY CRAMPING
[2018-07-26 00:45] LABS: ABSOLUTE NEUTROPHILS 5.4 thou/uL (1.4-8.2); BASOPHILS 0.5 % (0.0-2.0); EOSINOPHILS 1.8 % (0.0-3.0); HEMATOCRIT 22.1 % (37.0-47.0); MCHC 32.3 g/dL (28.0-37.0); MCV 80.4 fL (80.0-100.0); MONOCYTES 7.4 % (1.0-8.0); PLATELET COUNT 318 thou/uL (150-400); POLYS 59.3 % (36.0-66.0); RBC 2.74 mil/uL (4.20-5.00); RDW 16.3 % (10.5-14.5); WBC 9.1 thou/uL (4.0-11.0)
[2018-07-26 00:51] LABS: HEMOGLOBIN 7.1 gm/dL (12.0-15.0)
[2018-07-26 00:56] LABS: CALCIUM 8.6 mg/dL (8.5-10.1); CREATININE 0.8 mg/dL (0.6-1.0); POTASSIUM 3.3 mmol/L (3.5-5.1)
[2018-07-26 01:01] LABS: ALBUMIN 3.2 g/dL (3.4-5.0); TOTAL BILIRUBIN 0.1 mg/dL (<0.1-1.0); TOTAL PROTEIN 6.4 g/dL (6.4-8.2)
--- NOTE | 2018-07-26 03:00 | NUR ---
BLOOD PRODUCT VERIFIED BY MYSELF AT 0210.
--- NOTE | 2018-07-26 04:30 | NUR ---
BLOOD TRANSFUSION-FIRST UNIT OF PRBCs ON 07/26/18 UNIT STARTED IN ER AND COMPLETED IN ICU COMPLETED AT 0420 ON 07/26/18 BLOOD INFUSED: 290 CC NS INFUSED: 80 CC POST-TRANSFUSION VITALS-0430 07/26/18 B/P: 167/89 HR: 84 RR: 15 SPO2: 100% TEMP: 98.5 NO REACTIONS SUSPECTED
[2018-07-26 06:29] LABS: HEMATOCRIT 25.7 % (37.0-47.0); HEMOGLOBIN 8.5 gm/dL (12.0-15.0)
--- NOTE | 2018-07-26 07:00 | NUR ---
PT ARRIVED IN ICU FROM ER AT 0330. FIRST UNIT OF PRBC FINISHED SHORTLY AFTER ARRIVAL AND SECOND UNIT ADMINISTERED AFTER THAT. HGB WAS 8.5 THIS MORNING. PT HAS HAD NO ACTIVE BLEEDING SINCE ARRIVING IN THE ICU. PT DENIES PAIN, NAUSEA, AND ABD CRAMPING. POTASSIUM REPLACED WITH 40 MEQ KCL. WILL CONTINUE TO MONITOR.
--- NOTE | 2018-07-26 07:47 | NUR ---
RECIEVED CALL FROM RADIOLOGY ABOUT INCIDENTAL FINDINGS OF PULM NODULES ON CT. NOTIFIED ICU NURSE WHO WILL NOTIFY HOSPITALIST.
[2018-07-26 20:12] LABS: HEMATOCRIT 26.9 % (37.0-47.0)
--- NOTE | 2018-07-26 21:19 | NUR ---
21:01>SBP 180/88. 21:12>RECHECKED 189/84. 21:19>CALLED COOPER MIRZA. RELAYED BP. INFORMED HER THAT PATIET WAS GIVEN HYDRALAZINE THIS AFTERNOON BUT PATIENT HAD INCREASE HR, SOA, JOYCE, COLD SWEAT . PT REFUSES TO HAVE THE HYDRALAZINE MED. INFORMED COOPER MIRZA THAT PT IS ON FULL LIQUID DIET. SHE SAID SHE WILL PUT AN ORDER ON. FF UP POC.
--- NOTE | 2018-07-26 23:14 | NUR ---
23:14>patient is asking for a sleeping medication. She said that at home she would sleep at 5 am and be awake at 7am and would took some afternoon na. She verbalized that she would take the over counter medication Melatonin. Called [employer] Ariane Ulloa. Relayed request of patient and informed her on the full liquid diet. She ordered to give Benadryl 50 mg po X 1 dose only. Readback done and orders entered.
[2018-07-27] VITALS (23 sets, daily range): BP systolic 126–184; BP diastolic 64–99
[2018-07-27 05:10] LABS: HEMATOCRIT 26.1 % (37.0-47.0); HEMOGLOBIN 8.6 gm/dL (12.0-15.0); MCH 27.1 pg (26.0-34.0); MCV 82.3 fL (80.0-100.0); RBC 3.17 mil/uL (4.20-5.00); RDW 16.6 % (10.5-14.5)
[2018-07-27 05:16] LABS: CALCIUM 8.3 mg/dL (8.5-10.1); CREATININE 0.7 mg/dL (0.6-1.0); POTASSIUM 3.6 mmol/L (3.5-5.1)
--- NOTE | 2018-07-27 06:28 | NUR ---
06:28>called COOPER Ulloa regarding the high BP trend from 4am. She ordered to give another ONETIME DOSE OF LABETALOL 10 MG IV. READBack done and orders entered
--- NOTE | 2018-07-27 10:31 | HC ---
[facility] [place] [address] CONSULTATION Name: EDWIN WHITLEY Room #: 243-P [facility] IN M.R.#: [id number] Admission: 07/26/18 ������������������ Attend Phys: Makenna Bonilla Discharge: ������������������ Date of : 59 Report #: [id number] THIS REPORT FOR: //name// CC: FAM unknown Makenna Bonilla HISTORY OF PRESENT ILLNESS: This is a 62-year-old female with a history of prior GI bleeding back in 2013, at which time, she received coils via Invasive Radiology in the transverse colon distribution of the inferior mesenteric artery. She was hospitalized in May for similar episode of abdominal pain and bleeding with a negative bleeding scan at that time. She developed significant abdominal pain and crampy discomfort in her right lower quadrant approximately 24 hours ago with significant bloody stools thereafter. She has had no significant bleeding since being admitted. She presented with significant anemia and the pain basically resolved shortly after arriving in the Emergency Room. PAST MEDICAL HISTORY: Her medical history is well detailed in the chart that includes anemia, diabetes, closed head injury, CVA, diverticulitis, diverticulosis, diverticular bleeding, left hemiparesis. ALLERGIES: She is allergic to no medications. MEDICATIONS ON PRESENTATION: Include hydrocortisone, vitamin B12, vitamin D, Tylenol, Glucophage, lisinopril. Her last EGD and colonoscopy were per the record 04/2017. She did have a flexible sigmoidoscopy, which showed diverticulosis with blood, but no evidence of active bleeding. FAMILY HISTORY: Negative for inflammatory bowel disease or colon cancer. She denies smoking or significant alcohol abuse. REVIEW OF SYSTEMS: Negative for weight loss, weakness or fatigue. She denies head, eyes, ears, nose or throat complaints. Denies chest pain, chest palpitation, chest pressure, cough, shortness of breath, wheezing, genitourinary, musculoskeletal or neuropsychiatric complaints. PHYSICAL EXAMINATION: VITAL SIGNS: Afebrile, vital signs stable. HEENT: Nonicteric. NECK: No JVD, thyromegaly or bruits. CARDIOVASCULAR: Regular. LUNGS: Clear. ABDOMEN: Soft, nondistended, nontender, normoactive bowel sounds. No hepatosplenomegaly. No stigmata of chronic liver disease. No abnormal masses or bruits. [facility] [address] [place] [address] CONSULTATION Name: EDWIN WHITLEY WALDO Room #: 243-P [facility] IN M.R.#: [id number] Admission: 07/26/18 ������������������ Attend Phys: Makenna Bonilla Discharge: ������������������ Date of : 59 Report #: [id number] EXTREMITIES: No clubbing, cyanosis or edema. NEUROLOGIC: Not performed. RECTAL: Deferred. LABORATORY DATA: Includes presenting hemoglobin 7.1, now 8.5 after 2 units of packed red blood cells. She has had a platelet count is 318, MCV 80.4 and RDW 16.3. Serum chemistry notable for potassium 3.3, glucose 204. AST, ALT normal. Albumin 3.2. Lipase normal. Imaging reveals CT abdomen and pelvis with diffuse diverticulosis, pulmonary nodule and some localized diverticulitis in the descending colon. In summary, the patient has significant anemia, lower GI bleeding and CT findings supportive of diverticulitis. It is unusual to have a diverticular bleed with acute diverticulitis. So other considerations must be entertained including ischemic colitis. Her pain is now resolved. At this point, we will monitor her and consider a full colonoscopy as an outpatient. I would treat the diverticulitis with antibiotics even though mild on CT scan. I appreciate the opportunity to participate in her care. We will advance her diet slowly. ��������������������������������������������� <ELECTRONICALLY SIGNED> ���������������������������������������� By: Mickey Higgins MD ��������������������������������������������� 07/27/18 1031 1206 1332 Mickey Higgins MD /nt
--- NOTE | 2018-07-27 13:28 | EKG ---
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 : 1955 Requested By: Luther James Order Number: [id number] MD: Nahun Roblero Measurements Intervals [place] Rate: 89 P: 62 [place]: 147 QRS: 4 QRSD: 86 T: 206 QT: 358 QTc: 436 Interpretive Statements Sinus rhythm Abnrm T, consider ischemia, anterolateral lds Compared to ECG 04/21/2017 21:27:47 No significant change was found Electronically Signed On 07-27-2018 13:28:10 CDT by Nahun Roblero [email or web address] ��������������������������������������������� <ELECTRONICALLY SIGNED> ���������������������������������������� By: Nahun Roblero MD, [facility] ��������������������������������������������� 07/27/18 1328 0046 0046 Nahun Roblero MD, [facility] /EPI
[2018-07-27 21:24] LABS: HEMATOCRIT 26.6 % (37.0-47.0); HEMOGLOBIN 8.7 gm/dL (12.0-15.0)
[2018-07-28] VITALS (12 sets, daily range): BP systolic 142–167; BP diastolic 63–93
[2018-07-28 01:45] LABS: URINE BILIRUBIN NEGATIVE (Negative); URINE BLOOD NEGATIVE (Negative); URINE CLARITY CLEAR; URINE COLOR YELLOW; URINE GLUCOSE-RANDOM* NEGATIVE (Negative); URINE KETONES NEGATIVE (Negative); URINE LEUKOCYTES-REFLEX TRACE (Negative); URINE NITRITE-REFLEX NEGATIVE (Negative); URINE PROTEIN (DIPSTICK) NEGATIVE (Negative); URINE UROBILINOGEN 0.2 E.U./dl (0.2-1.0)
--- NOTE | 2018-07-28 06:32 | NUR ---
PT. ON BED SIDE COMMODE DURING REPORT; AOX4; NO C/O PAIN DURING ASSESSMENT; ABLE TO REST JUST A FEW HOURS WITH EYES CLOSED; CALLED APROPIATELY WHEN UP FROM BED; NO BRIGHT RED DIARRHEA DURING THE NIGHT; NO N/V; TOLERATING REGULAR FOOD; ASSESSMENT CHARGED; FOLLOWING POC; WILL PASS ON REPORT.
[2018-07-28 06:52] LABS: HEMATOCRIT 24.6 % (37.0-47.0); HEMOGLOBIN 8.1 gm/dL (12.0-15.0)
--- NOTE | 2018-07-28 10:33 | NUR ---
PATIENT ALERT AND ORIENTED X4, NO COMPLAINTS OF PAIN. 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 ON ROOM AIR. TOLERATING DIET. UP WITH STANDBY ASSISTANCE. HGB AND HCT MONITORED. NO SIGNS OF DISTRESS NOTED AT THIS TIME. REPORT GIVEN TO ONCOMING NURSE, PATIENT TRANSFERRED TO [facility].
--- NOTE | 2018-07-28 18:30 | NUR ---
PT RECEIVED FROM ICU PER W/C AT 1030 ALERT AND IN NO ACUTE DISTRESS. AGREE W/ PREVIOUS ASSESSMENT. PT PROGRESSING WELL. NO FUTHER BM SINCE EARLY AM. EATING AND DRINKING WELL. NO C/O PAIN.
[2018-07-28 20:05] LABS: HEMOGLOBIN 8.6 gm/dL (12.0-15.0)
[2018-07-29 04:47] VITALS: BP 172/96
--- NOTE | 2018-07-29 06:24 | NUR ---
SLEPT PART OF SHIFT. STAYED UP LATE WATCHING TV. STATES THAT IS HER NORM. UP AD ED TO BATHROOM WITH STEADY GAIT. NOTIFIED FLIGHT PURSER AT 0500 OF ELEVATED BP. STATES TO GIVE AM LISINOPRIL AT 0630 THIS AM. PATIENT STATES HER BP IS ALWAYS HIGH. WORKING ON GOALS AND PLAN OF CARE FOR NOC. PROGRESSING SLOWLY TOWARDS DISCHARGE GOALS. STATES HAS NOT HAD ANY BLOODY STOOLS THIS SHIFT. DENIES COMPLAINTS OF PAIN OR SHORTNESS OF AIR. CONTINUE TO ASSES.
[2018-07-29 07:21] LABS: HEMATOCRIT 26.9 % (37.0-47.0); HEMOGLOBIN 8.8 gm/dL (12.0-15.0)
[2018-07-29 07:40] VITALS: BP 174/92
[2018-07-29] MEDS ORDERED: FLAGYL500 M1 PO (10:45)
[2018-07-29] MEDS ORDERED: CIPRO500 M1 PO (10:45)
[2018-07-29 15:40] VITALS: BP 152/89
[2018-07-29 17:31] VITALS: BP 152/89
--- NOTE | 2018-07-29 20:05 | NUR ---
QUIET UNEVENTFUL DAY FOR THIS NICE LADY. UP INDEPENDENTLY AND TOLERATED WELL. TOLERATING DIET. DENIED ABD PAIN. STATED HAD NO BLEEDING TODAY. DISCHARGE HGB 8.8. DISMISSED HOME IN STABLE CONDITION.
== END 2018-07-29 19:31 | disposition home or self-care (01) | DRG 379 ==
LOC: ER 00:01 → EROBS 02:13 → ICU 02:13 → 4W 07-28 09:34 → ENTRNSPT 07-29 18:51 → 4W 07-29 19:31
PROVIDERS: Emergency Medicine; Nurse Practitioner Family; ADMIT Hospitalist
PROC: 30233N1 Transfusion of Nonautologous Red Blood Cells into Peripheral Vein, Percutaneous Approach (ICD-10-PCS; principal; 2018-07-26)
DX: K57.31 Diverticulosis of large intestine without perforation or abscess with bleeding (principal); K57.33 Diverticulitis of large intestine without perforation or abscess with bleeding; I10 Essential (primary) hypertension; E78.5 Hyperlipidemia, unspecified; E11.9 Type 2 diabetes mellitus without complications; K52.9 Noninfective gastroenteritis and colitis, unspecified; Z90.49 Acquired absence of other specified parts of digestive tract; Z86.73 Personal history of transient ischemic attack (TIA), and cerebral infarction without residual deficits; Z80.0 Family history of malignant neoplasm of digestive organs; Z79.899 Other long term (current) drug therapy
CPT/HCPCS: 10040; 10045; 10078

== ENCOUNTER 2019-03-19 00:51 | Emergency (ER) | payer OTHER ==
[~2019-03-19] VITALS: Ht 160 cm; Wt 83.9 kg
[~2019-03-19 00:51] MED LIST changes: +CIPRO500 M1 PO; +FLAGYL500 M1 PO
[2019-03-19 02:23] LABS: HEMATOCRIT 28.9 % (37.0-47.0); HEMOGLOBIN 9.1 gm/dL (12.0-15.0); MCH 25.2 pg (26.0-34.0); MCHC 31.5 g/dL (28.0-37.0); MCV 79.9 fL (80.0-100.0); RBC 3.62 mil/uL (4.20-5.00); RDW 16.2 % (10.5-14.5); WBC 8.6 thou/uL (4.0-11.0)
[2019-03-19 02:26] LABS: CALCIUM 9.4 mg/dL (8.5-10.1); CREATININE 0.9 mg/dL (0.6-1.0); POTASSIUM 3.4 mmol/L (3.5-5.1)
[2019-03-19 02:41] LABS: ALBUMIN 3.4 g/dL (3.4-5.0); DIRECT BILIRUBIN < 0.1 mg/dL (<0.1-0.3); SGOT 29 U/L (15-37); SGPT 35 U/L (30-65); TOTAL BILIRUBIN 0.1 mg/dL (<0.1-1.0); TOTAL PROTEIN 6.9 g/dL (6.4-8.2)
[2019-03-19 04:40] VITALS: BP 172/86
== END 2019-03-19 04:40 | disposition home or self-care (01) ==
LOC: ER 00:51
PROVIDERS: Emergency Medicine
DX: K57.30 Diverticulosis of large intestine without perforation or abscess without bleeding (principal); D64.9 Anemia, unspecified; I10 Essential (primary) hypertension; E11.9 Type 2 diabetes mellitus without complications; E78.5 Hyperlipidemia, unspecified; Z90.49 Acquired absence of other specified parts of digestive tract; Z86.73 Personal history of transient ischemic attack (TIA), and cerebral infarction without residual deficits; Z88.8 Allergy status to other drugs, medicaments and biological substances